=== PATIENT | female | born 1990 | race Caucasian/White ===

== ENCOUNTER → 2019-07-04 | Outpatient (CLI) | payer OTHER ==
[~2019-07-04] VITALS: Ht 165.1 cm; Wt 94.1 kg
[~2019-07-04] MED LIST: NATURAL IRON65 MG PO; SYNTHROID0.075 MG/T PO; VITAMIN C500 MG PO; VITAMIN D 1001000 IU PO; ZOLOFT 50MG50 MG PO
[2019-07-04 11:52] VITALS: BP 134/85; PULSE 58
--- NOTE | 2019-07-04 11:59 | NUR ---
CALLED AND LET STAFF KNOW PT IS READY
[2019-07-04 13:00] VITALS: BP 144/82; PULSE 56
== END ==
LOC: COL.RAD 11:34
DX: E04.2 Nontoxic multinodular goiter (principal)